=== PATIENT | male | born 1960 | race Caucasian/White ===

== ENCOUNTER → 2023-01-10 13:47 | Outpatient (CLI) | payer OTHER, SELFPAY | PROVIDERS: Visit Provider Registered Nurse | DX: J02.9 Acute pharyngitis, unspecified (principal) | CPT/HCPCS: 87070 ==

== ENCOUNTER → 2023-02-06 13:09 | Outpatient (CLI) | payer OTHER, SELFPAY | PROVIDERS: PCP Student in an Organized Health Care Education/Training Program; Visit Provider Nurse Practitioner Family | DX: J02.9 Acute pharyngitis, unspecified (principal) | CPT/HCPCS: 87070 ==

== ENCOUNTER → 2023-02-10 15:54 | Outpatient (CLI) | payer OTHER, SELFPAY ==
[2023-02-10 16:16] LABS: Add Manual Diff / Slide Review NO; Basophils Absolute Auto 100 /uL (0-100); Basophils Percent Auto 1.4 % (0-2); Eosinophils Absolute Auto 400 /uL (0-450); Eosinophils Percent Auto 3.5 % (2-4); Hematocrit 46.6 % (41-53); Hemoglobin 16.3 g/dL (13.5-17.5); Lymphocytes Absolute Auto 2100 /uL (1100-4500); Lymphocytes Percent Auto 20.6 % (25-40); Mean Corpuscular HGB Conc 34.9 % (30-36); Mean Corpuscular Hemoglobin 30.6 PG (26-34); Mean Corpuscular Volume 87.7 fL (80-100); Monocytes Absolute Auto 1300 /uL (0-900); Monocytes Percent Auto 12.4 % (3-14); Neutrophils Absolute Auto 6400 /uL (1500-7000); Neutrophils Percent Auto 62.1 % (50-75); Platelet Count 247 X10^3/uL (150-400); Red Blood Cell Count 5.32 X10^6/uL (4.5-5.9); Red Cell Distribution Width 13.5 % (11.6-14.8); White Blood Cell Count 10.3 X10^3/uL (4.5-11.0)
== END ==
PROVIDERS: PCP Student in an Organized Health Care Education/Training Program; Referring Provider Family Medicine; Visit Provider Family Medicine
DX: R21 Rash and other nonspecific skin eruption (principal)
CPT/HCPCS: 36415; 85025; 86060

== ENCOUNTER → 2023-02-12 06:34 | Outpatient (CLI) | payer OTHER, SELFPAY ==
--- NOTE | 2023-02-12 06:36 | DI.ECHO.S_ITS ---
[facility] +---------+ [facility] +---------+ : : [address] : [address] : : : : [id number] : : : : Phone: [phone]---------+ Echocardiogram Report + + :Name: YANI BERMAN Study Date: 02/12/2023 Height: 68 in : :[facility] ReadingLocation: Weight: 207 lb : : Gender: Male BSA: 2.1 m2 : :: 1960 Age: 62 yrs BP: 132/85 mmHg: :Reason For Study: TRACKING SMALL AORTIC ANEURYSM : :Ordering Physician: HIPOLITO, : :GÉNESIS Performed By: Shivani Dent : :Referring: GÉNESIS MCMILLAN : + + Interpretation Summary 1) Mildly enlarged left ventricle with mildly to moderately reduced systolic function (EF 40-45%). 2) The distal inferior wall is severely hypokinetic. The The apex and apical septum are akinetic. Rest of the LV is mildly hypokinetic. 3) There is a likely calcific trabeculation at the distal inferior wall. Thrombus is less likely but can't be definitively excluded. 4) Normal right ventricular size and function. 5) No significant valvular abnormalities. 6) The ascending aorta is moderately enlarged at 4.6cm. 7) No prior Echo available for comparison. Procedure: A two-dimensional transthoracic echocardiogram with color flow and Doppler was performed. The study quality was technically adequate. There is no prior echocardiogram noted for this patient. A contrast injection of Definity was performed to improve assessment for apical thrombus. The patient was in sinus rhythm with heart rates between 73-85 bpm during the exam. Left Ventricle: The left ventricle is mildly dilated. The estimated left ventricular end diastolic volume is 162 ml. The ejection fraction is estimated to be 40-45%. There is a likely calcific trabeculation at the distal inferior wall. Thrombus is less likely but can't be definitively excluded. The distal inferior wall is severely hypokinetic. The The apex and apical septum are akinetic. Rest of the LV is mildly hypokinetic. Right Ventricle: The right ventricle is normal in size and function. Atria: The left atrium is mildly dilated. Right atrial size is normal. There is no Doppler evidence for an interatrial shunt. Mitral Valve: There is a flat closure plane of the the mitral valve leaflets. There is mild mitral regurgitation. Aortic Valve: The aortic valve is trileaflet. The aortic valve opens well. There is no aortic valve stenosis. No aortic regurgitation is present. Tricuspid Valve: The tricuspid valve is normal in structure and function. There is mild tricuspid regurgitation. The right ventricular systolic pressure is estimated to be at least 19 mmHg based on an estimated right atrial pressure of 3 mm Hg. Pulmonic Valve: The pulmonic valve leaflets are thin and pliable; valve motion is normal. There is mild pulmonic regurgitation. Great Vessels: The aortic root is mildly dilated. The ascending aorta is moderately enlarged. The IVC is of normal diameter and collapses greater than 50% with a sniff. This suggests a low right atrial pressure of 3 mm Hg. Pericardium/ Pleura There is no pericardial effusion. There is no pleural effusion. MMode/2D Measurements & Calculations LVIDd: 6.0 cm LVOT diam: 2.4 cm LVIDs: 4.2 cm Ao root diam: 4.2 cm FS: 30.5 % asc Aorta Diam: 4.6 cm EPSS: 1.5 cm Ao Arch Diam (Prox Trans): 3.0 cm IVSd: 0.81 cm LVPWd: 0.78 cm LV avila. diameter/BSA (cm/m^2): 2.9 LV sys. diameter/BSA (cm/m^2): 2.0 LA A2 area: 23.1 cm2 RA long axis: 5.6 cm LA A4 area: 17.7 cm2 RA area: 15.7 cm2 LA length (vol): 4.9 cm RA vol: 37.3 ml LA vol: 70.5 ml RA : 18.0 ml/m2 LA vol index: 34.0 ml/m2 IVC diam: 1.8 cm RVD1 (basal): 3.4 cm RVD2 (mid): 3.2 cm TAPSE: 2.1 cm Doppler Measurements & Calculations Ao V2 max: 114.5 cm/sec LVOT Max Trevor: 93.9 cm/sec Ao V2 mean: 85.1 cm/sec LV V1 max P.5 mmHg Ao max P.2 mmHg LV V1 VTI: 18.1 cm Ao mean P.1 mmHg CHRISTINA(I,D): 3.4 cm2 Ao V2 VTI: 24.0 cm CHRISTINA(V,D): 3.7 cm2 sev ratio: 0.75 CHRISTINA indexed to BSA (cm^2/m^2): 1.6 MV E max trevor: 35.4 cm/sec TR max trevor: 201.4 cm/sec MV A max trevor: 48.0 cm/sec TR max P.2 mmHg MV E/A: 0.74 PA V2 max: 113.6 cm/sec Med Peak E' Trevor: 5.5 cm/sec PA V2 mean: 75.0 cm/sec E/E' med: 6.4 PA mean P.6 mmHg Lat Peak E' Trevor: 5.3 cm/sec PA pr(Accel): 32.8 mmHg E/E' lat: 6.6 E/e' average: 6.5 MV dec time: 0.27 sec SV(LVOT): 81.3 ml Reading Physician:12:47 PM
== END ==
PROVIDERS: PCP Student in an Organized Health Care Education/Training Program; Referring Provider Student in an Organized Health Care Education/Training Program; Visit Provider Student in an Organized Health Care Education/Training Program
DX: I71.9 Aortic aneurysm of unspecified site, without rupture (principal); I08.1 Rheumatic disorders of both mitral and tricuspid valves; I77.89 Other specified disorders of arteries and arterioles
CPT/HCPCS: C8929; Q9957

== ENCOUNTER → 2023-04-11 08:02 | Outpatient (CLI) | payer OTHER, SELFPAY ==
--- NOTE | 2023-04-17 10:42 | PM.PFT.1 ---
Pulmonary Function Test Referral & Results Results: The spirometry demonstrates an FVC of 4.18 L which is 95% of predicted. The FEV1 was measured at 3.40 L which is 103% of predicted. The FEV1/FVC ratio was 82 which is 108% of predicted. Following the administration of bronchodilator there was no appreciable change to above normal numbers. Lung volumes show an SVC of 4.41 L which is 99% of predicted. The diffusing capacity was measured at 32.06 which is 108% of predicted. The maximum voluntary ventilation was normal Interpretation: This study demonstrates normal pulmonary function
== END ==
PROVIDERS: PCP Student in an Organized Health Care Education/Training Program; Referring Provider Student in an Organized Health Care Education/Training Program; Visit Provider Student in an Organized Health Care Education/Training Program
DX: R05.3 Chronic cough (principal)
CPT/HCPCS: 94060; 94726; 94729

== ENCOUNTER → 2024-04-29 07:50 | Outpatient (CLI) | payer OTHER, SELFPAY ==
[2024-04-29 09:29] LABS: BUN Creatinine Ratio 19.4 (6-22); Blood Urea Nitrogen 21 mg/dL (9-20); Carbon Dioxide 30 mmol/L (22-32); Chloride 107 mmol/L (98-107); Cholesterol 100 mg/dL (140-199); Estimated Glomerular Filt Rate > 60 mL/min (>60); Glucose 106 mg/dL (80-110); HDL Cholesterol 32 mg/dL (40-60); HEMOLYSIS < 15 (0-50); LDL Cholesterol Calculated 43 mg/dL (<100); Potassium 4.7 mmol/L (3.4-5.1); Sodium 139 mmol/L (137-145); Triglycerides 123 mg/dL (35-150)
== END ==
PROVIDERS: PCP Family Medicine; Referring Provider Nurse Practitioner; Visit Provider Nurse Practitioner
DX: I25.5 Ischemic cardiomyopathy (principal)
CPT/HCPCS: 36415; 80048; 80061

== ENCOUNTER → 2024-06-21 13:10 | Outpatient (CLI) | payer OTHER, SELFPAY ==
--- NOTE | 2024-06-21 13:11 | DI.RAD.S_ITS ---
PROCEDURE: XR HIP W PEL IF DONE RT 2V INDICATIONS: Rt hip pain for several months TECHNIQUE: AP pelvis with lateral view(s) of the right hip(s). COMPARISON: None. FINDINGS: Bones: No fractures or dislocations. Pelvic ring appears intact. No suspicious bony lesions. Mild periarticular osteophyte formation at the bilateral hip joints. Soft tissues: The visualized bowel gas pattern is normal. No suspicious soft tissue calcifications. IMPRESSION: Bilateral hip osteoarthritis. No acute fracture. No osseous lesion. If symptoms and/or clinical suspicion for pathology persist, further assessment with repeat, or advanced imaging (e.g., CT, MRI, or bone scan) may be helpful for further assessment. Dictated by: Kareem Urbina M.D. on 06/21/2024 at 15:33 Approved by: Kareem Urbina M.D. on 06/21/2024 at 15:33
== END ==
LOC: RAD 13:11
PROVIDERS: PCP Family Medicine; Referring Provider Family Medicine; Visit Provider Family Medicine
DX: M16.0 Bilateral primary osteoarthritis of hip (principal); M25.551 Pain in right hip
CPT/HCPCS: 73502

== ENCOUNTER → 2024-09-03 11:06 | Outpatient (CLI) | payer OTHER, SELFPAY | PROVIDERS: PCP Family Medicine; Referring Provider Family Medicine; Visit Provider Family Medicine | DX: N40.0 Benign prostatic hyperplasia without lower urinary tract symptoms (principal) | CPT/HCPCS: 36415; 84153 ==

== ENCOUNTER → 2024-09-09 08:27 | Outpatient (CLI) | payer OTHER, SELFPAY | PROVIDERS: PCP Family Medicine; Visit Provider Urology | DX: R39.9 Unspecified symptoms and signs involving the genitourinary system (principal) | CPT/HCPCS: 87086 ==